=== PATIENT | male | born 1990 | race Hispanic/Latino ===

== ENCOUNTER 2021-05-01 19:02 | Emergency (ER) | payer SELFPAY ==
--- OUTSIDE RECORDS SUMMARY | 2021-05-01 19:03 | XMS REPORT | Continuity of Care Document ---
:1990 Author Organization [facility] t Address [address] [place] [address] Dr. Jones [address] [place] [id number] Care Team Providers Name Role Phone Unavailable Unavailable Unavailable Problems This patient has no known problems. Allergies, Adverse Reactions, Alerts This patient has no known allergies or adverse reactions. Medications This patient has no known medications. Procedures This patient has no known procedures. Results This patient has no known results.
--- NOTE | 2021-05-01 21:17 | RAD REPORT ---
EXAM DESCRIPTION: CT - CTHCSPWOC - 05/01/2021 9:01 pm CLINICAL HISTORY: headache and neck pain COMPARISON: No comparisons TECHNIQUE: Axial 5 mm thick images of the head were obtained. Axial 2 mm thick images of the cervic al spine were obtained with sagittal and coronal reconstruction images generated and reviewed. All CT scans are performed using dose optimization technique as appropriate and may include automated exposure control or mA/KV adjustment according to patient size. FINDINGS: No intracranial hemorrhage, mass, edema or acute intracranial finding. No suspicion for ac [place] infarction. No extra-axial fluid collections. Mastoid air cells and paranasal sinuses are clear. No globe or orbit abnormality seen. Cervical body height and alignment are normal. No disk space narrowing. No fracture or acute bony abn ormality. Central canal detail is inherently limited. No paraspinal mass or hematoma. Small sub centimeter bilateral cervical lymph nodes present. IMPRESSION: Negative CT head examination for acute or significant finding. Negative CT cervical spine examination for acute or significant finding.
[2021-05-01 21:24] LABS: Urine Blood Negative (Negative); Urine Glucose Negative (Negative); Urine Protein Negative (Negative); Urine Specific Gravity >=1.030 (1.005-1.030); Urine pH 6.5 (5.0-7.0)
[2021-05-01] MEDS ORDERED: LIDOCAINE 4% PATCH ONE (21:49)
[2021-05-01] MEDS ORDERED: CYCLOBENZAPRINE 10 MG TAB ONE (21:49)
[2021-05-01] MEDS ORDERED: KETOROLAC 30 MG/ML INJ ONE (21:49)
--- NOTE | 2021-05-01 22:09 | EDPHYS ---
Physician Documentation [facility] Name: Shawn Elizabeth Age: 30 yrs Sex: Male : 1990 Arrival Date: 05/01/2021 Time: 19:55 Bed 19 Private MD: ED Physician Kadeem Disla HPI: 05/01 20:45 This 30 yrs old Male presents to ER via Ambulatory with complaints of Neck cp Pain, >24Hrs Old - 9 DAYS. 20:45 The patient or guardian complains of pain, that is acute. The symptoms are located on cp the posterior left side of neck. Onset: The symptoms/episode began/occurred 9 day(s) ago. Associated signs and symptoms: Pertinent positives: headache, nausea, vomiting, Pertinent negatives: fever, numbness, weakness. The pain does not radiate. 20:45 Patient reports started having sudden pain to left side back of head after having cp intercourse with 9 days ago. Patient reports having sudden pain causing him to pass out briefly. Patient reports now having pain to left side back of head and posterior left side of neck. Historical: - Allergies: 20:01 No Known Allergies; da3 - PMHx: 20:01 None; da3 - Immunization history:: Client reports having NOT received the Covid vaccine. - Social history:: Smoking status: Patient reports the use of cigarette tobacco products, smokes one-half pack cigarettes per day. ROS: 20:50 Neck: Positive for pain with movement, pain at rest, of the posterior left side of cp neck, Negative for injury or acute deformity. 20:50 Eyes: Negative for injury, pain, redness, and discharge. cp 20:50 Constitutional: Negative for body aches, chills, fever, poor PO intake. 20:50 ENT: Negative for drainage from ear(s), ear pain, sore throat, difficulty swallowing, difficulty handling secretions. 20:50 Cardiovascular: Negative for chest pain. 20:50 Respiratory: Negative for cough, shortness of breath, wheezing. 20:50 Abdomen/GI: Positive for nausea and vomiting, Negative for abdominal pain, diarrhea, constipation. 20:50 Neuro: Positive for headache, Negative for altered mental status, numbness, weakness. 20:50 All other systems are negative. Exam: 20:55 Constitutional: The patient appears in no acute distress, alert, awake, cp non-diaphoretic, non-toxic, well developed, well nourished, obese. 20:55 Head/Face: Normocephalic, atraumatic. cp 20:55 Eyes: Periorbital structures: appear normal, Pupils: equal, round, and reactive to light and accomodation, Extraocular movements: intact throughout, Conjunctiva: normal, no exudate, no injection, Sclera: no appreciated abnormality, Lids and lashes: appear normal, bilaterally. 20:55 ENT: External ear(s): are unremarkable, Ear canal(s): are normal, clear, TM's: dullness, bilaterally, Nose: is normal, Mouth: Lips: moist, Oral mucosa: pink and intact, moist, Posterior pharynx: Airway: no evidence of obstruction, patent. 20:55 Neck: C-spine: vertebral tenderness, is not appreciated, crepitus, is not appreciated, ROM/movement: pain, that is mild, with rotation to the right, limited range of motion, is not appreciated, Meningeal signs: are not present, nuchal rigidity, is not appreciated, Lymph nodes: no appreciated lymphadenopathy. 20:55 Chest/axilla: Inspection: normal, Palpation: is normal, no crepitus, no tenderness. 20:55 Cardiovascular: Rate: normal, Rhythm: regular. 20:55 Respiratory: the patient does not display signs of respiratory distress, Respirations: normal, no use of accessory muscles, no retractions, labored breathing, is not present, Breath sounds: are clear throughout, no decreased breath sounds, no stridor, no wheezing. 20:55 Abdomen/GI: Inspection: obese Palpation: abdomen is soft and non-tender, in all quadrants. 20:55 Back: pain, is absent, ROM is normal. 20:55 Neuro: Orientation: to person, place \T\ time. Mentation: is normal, Cerebellar function: is grossly normal, Motor: moves all fours, strength is normal, Sensation: is normal, Gait: is steady, at a normal pace, without difficulty. Vital Signs: 19:59 BP 126 / 55; Pulse 75; Resp 18; Temp 98.7; Pulse Ox 100% on R/A; Weight 165.56 kg; da3 Height 5 ft. 11 in. (180.34 cm); 20:45 BP 128 / 79; Pulse 84; Resp 19; Pulse Ox 99% ; sm5 21:45 BP 122 / 75; Pulse 80; Resp 18; Pulse Ox 100% on R/A; sm5 22:26 BP 125 / 73; Pulse 78; Resp 18; Pulse Ox 100% ; sm5 19:59 Body Mass Index 50.91 (165.56 kg, 180.34 cm) da3 MDM: 20:22 Patient medically screened. cp 21:00 Differential diagnosis: Cervical Raiculopathy Cervical Spondylosis cervical strain, cp Spondylolisthesis Spondylosis torticollis, tension headache, migraine. 22:05 Data reviewed: vital signs, nurses notes, radiologic studies, CT scan. cp 22:05 Counseling: I had a detailed discussion with the patient and/or guardian regarding: the cp historical points, exam findings, and any diagnostic results supporting the discharge/admit diagnosis, radiology results, the need for outpatient follow up, a family practitioner, to return to the emergency department if symptoms worsen or persist or if there are any questions or concerns that arise at home. Response to treatment: the patient's symptoms have markedly improved after treatment, VSS. Headache improved. Radiology studies negative for acute findings. Will discharge to home for continued monitoring. 05/01 21:04 Order name: Glucose, Ancillary Testing; Complete Time: 21:12 EDCO 05/01 21:12 Interpretation: Reviewed. 05/01 21:23 Order name: Urine Dipstick-Ancillary; Complete Time: 21:37 EDCO 05/01 20:29 Order name: CT Head C Spine; Complete Time: 21:37 05/01 20:29 Order name: Urine Dipstick-Ancillary (obtain specimen); Complete Time: 21:22 05/01 20:43 Order name: Accucheck Blood Glucose; Complete Time: 20:53 cp Administered Medications: 21:55 Drug: Lidoderm Patch 5 % (700 mg/patch) 1 patches Route: Topical; Site: affected area; sm5 22:27 Follow up: Response: Marked relief of symptoms sm5 21:55 Drug: Flexeril (cyclobenzaprine) 10 mg Route: PO; sm5 22:27 Follow up: Response: Marked relief of symptoms sm5 21:56 Drug: Ketorolac 60 mg Route: IM; Site: right deltoid; sm5 22:28 Follow up: Response: Marked relief of symptoms sm5 Disposition Summary: 05/01/21 22:06 Discharge Ordered Location: Home cp Problem: new cp Symptoms: have improved cp Condition: Stable cp Diagnosis - Headache cp - Cervicalgia cp Followup: cp - With: Private Physician - When: 2 - 3 days - Reason: Recheck today's complaints Discharge Instructions: - Discharge Summary Sheet cp - Tension Headache, Adult cp Forms: - Medication Reconciliation Form cp - Thank You Letter cp - Antibiotic Education cp - Prescription Opioid Use cp Prescriptions: - Naprosyn 500 mg Oral Tablet - take 1 tablet by ORAL route 2 times per day take with food; 20 tablet; Refills: cp 0, Product Selection Permitted - Cyclobenzaprine 10 mg Oral Tablet - take 1 tablet by ORAL route every 8 hours As needed; 20 tablet; Refills: 0, cp Product Selection Permitted Addendum: 05/05/2021 06:58 Co-signature as Attending Physician, Kadeem Disla MD. r n Signatures: Dispatcher [employer] EDKadeem Pereyra MD MD rn Page, Corey, PA PA cp Allan, David, RN RN da3 Jennifer Lopez RN RN sm5
--- NOTE | 2021-05-01 22:09 | ER ---
Nurse's Notes [facility] Name: Shawn Elizabeth Age: 30 yrs Sex: Male : 1990 Arrival Date: 05/01/2021 Time: 19:55 Bed 19 Private MD: Diagnosis: Headache;Cervicalgia Presentation: 05/01 19:59 Chief complaint: Patient states: head pain in back of head. Coronavirus screen: Vaccine da3 status: Patient reports being unvaccinated. Ebola Screen: No symptoms or risks identified at this time. Initial Sepsis Screen: Does the patient meet any 2 criteria? No. Patient's initial sepsis screen is negative. Risk Assessment: Do you want to hurt yourself or someone else? Patient reports no desire to harm self or others. 19:59 Method Of Arrival: Ambulatory da3 19:59 Acuity: JENNIE 4 da3 20:46 Initial Sepsis Screen: Does the patient have a suspected source of infection? No. sm5 Patient's initial sepsis screen is negative. 22:27 Onset of symptoms was April 29, 2021. 5 Triage Assessment: 20:02 General: Appears in no apparent distress. comfortable, Behavior is calm, cooperative. da3 Pain: Complains of pain in scalp Pain currently is 9 out of 10 on a pain scale. Pain began suddenly, 8 days ago during sex states he passed out. Historical: - Allergies: 20:01 No Known Allergies; da3 - PMHx: 20:01 None; da3 - Immunization history:: Client reports having NOT received the Covid vaccine. - Social history:: Smoking status: Patient reports the use of cigarette tobacco products, smokes one-half pack cigarettes per day. Screenin:46 Abuse screen: Denies threats or abuse. Denies injuries from another. Nutritional sm5 screening: No deficits noted. Tuberculosis screening: No symptoms or risk factors identified. Fall Risk None identified. Assessment: 22:24 General: Appears in no apparent distress. Behavior is calm, cooperative. Pain: sm5 Complains of pain in neck. Neuro: No deficits noted. Level of Consciousness is awake, alert, Oriented to person, place, time, situation, Appropriate for age. Cardiovascular: No deficits noted. Respiratory: No deficits noted. Airway is patent Trachea midline Respiratory effort is even, unlabored. GI: No deficits noted. Vital Signs: 19:59 BP 126 / 55; Pulse 75; Resp 18; Temp 98.7; Pulse Ox 100% on R/A; Weight 165.56 kg; da3 Height 5 ft. 11 in. (180.34 cm); 20:45 BP 128 / 79; Pulse 84; Resp 19; Pulse Ox 99% ; sm5 21:45 BP 122 / 75; Pulse 80; Resp 18; Pulse Ox 100% on R/A; sm5 22:26 BP 125 / 73; Pulse 78; Resp 18; Pulse Ox 100% ; sm5 19:59 Body Mass Index 50.91 (165.56 kg, 180.34 cm) da3 ED Course: 19:55 Patient arrived in ED. 20:01 Triage completed. da3 20:14 Watson Packer PA is PHCP. cp 20:14 Kadeem Disla MD is Attending Physician. cp 20:23 Jennifer Lopez, SONG is Primary Nurse. sm5 20:46 Arm band placed on right wrist. sm5 20:46 Patient has correct armband on for positive identification. Bed in low position. Call 5 light in reach. Side rails up X 1. 21:01 CT Head C Spine In Process Unspecified. EDMS 22:26 No provider procedures requiring assistance completed. Patient did not have IV access 5 during this emergency room visit. Administered Medications: 21:55 Drug: Lidoderm Patch 5 % (700 mg/patch) 1 patches Route: Topical; Site: affected area; sm5 22:27 Follow up: Response: Marked relief of symptoms sm5 21:55 Drug: Flexeril (cyclobenzaprine) 10 mg Route: PO; sm5 22:27 Follow up: Response: Marked relief of symptoms sm5 21:56 Drug: Ketorolac 60 mg Route: IM; Site: right deltoid; sm5 22:28 Follow up: Response: Marked relief of symptoms 5 Outcome: 22:06 Discharge ordered by . cp 22:27 Discharged to home ambulatory. sm5 22:27 Condition: good 22:27 Discharge instructions given to patient, Instructed on discharge instructions, no drinking with medication, medication usage, Demonstrated understanding of instructions, follow-up care, medications, Prescriptions given X 2. 22:28 Patient left the ED. 5 Signatures: Dispatcher [employer] EDMS Page, Watson, Gaby Hernandez cp, David, RN RN da3 Jennifer Lopez, RN RN sm5
[2021-05-01 22:32] VITALS: TEMP 98.7
[2021-05-01 22:35] VITALS: BP 125/73; O2SAT 100
== END 2021-05-01 22:28 | disposition home or self-care (01) ==
LOC: ER 19:02
DX: R51.9 Headache, unspecified (principal); F17.210 Nicotine dependence, cigarettes, uncomplicated
CPT/HCPCS: 70450; 72125; 81003; 82947; 96372; 99283

== ENCOUNTER 2023-12-30 09:59 | Emergency (ER) | payer SELFPAY ==
--- OUTSIDE RECORDS SUMMARY | 2023-12-30 10:02 | XMS REPORT | Continuity of Care Document ---
Author Name Unknown Address [address] [facility] [address] [place] [address] [facility] thconnect Address [address] [facility] [address] [place] [address] Care Team Providers Care Forgesmith Name Role Phone Clarence Lombardo Attending Clinician Unavailable Geovanny Escobar Attending Clinician Unavailable KNOW, DOES_NOT Admitting Clinician Unavailable Payers Payer Name Policy Type Policy Number Effective Date Expirati on Date Source Allergies, Adverse Reactions, Alerts Allergy Name Allergy Type Status Severity Reaction(s) Onset Date Inactive Date Treating Clinician Comments Source No Known Allergie s DA Active U 07-26 00:00: 00 [facility] Encounters Start Date/Time End Date/Time Encounter Type Admission Type Attending Clinicians Care Facility Care Department Encounter ID Source 2022-07-28 04:38:00 2022-07-28 07:19:00 Emergency EM Clarence Lombardo [facility] [id number] 03 [facility] 2022-07-26 01:36:00 2022-07-26 02:01:00 Emergency EM Geovanny Escobar [facility] [id number] 87 [facility] Results Test Description Test Time Test Comments Results Resul t Comments Source - CT MAXIFAC W/CONTRAST 2022-07-28 06:56:00 [facility] ([facility])Name: RALF FRANKEL : 1990 Sex: M Name: RALF FRANKEL [facility] : 1990 Age/S: 31 / M [address] [facility] beds at the [facility] Unit #: [id number] Loc: [place] [address] Phys: Clarence Lombardo MD Acct: [id number] Dis Date: Status: REG ER PHONE #: [phone] Exam Date: 07/28/2022634 FAX #: [phone] Reason: dental abscess EXAMS: CPT CODE: [id number] CT MAXIFAC W/CONTRAST [id number] EXAM: - CT MAXIFAC W/CONTRAST LOCATION: H61 CLINICAL HISTORY/INDICATION: dental abscess COMPARISON: None TECHNIQUE: Axial CT images were obtained through the maxillofacial region after intravenous contrast administration. These were reviewed in both soft tissue and bone algorithms. Coronal and sagittal reformats were obtained from the axial data. This examination was performed according to our departmental dose optimization program, which includes automated exposure control, adjustment of the mA and/or kV according to patient size, and/or use of iterative reconstruction technique. FINDINGS: PARTIALLY IMAGED INTRACRANIAL STRUCTURES:No acute abnormality demonstrated. MASTOID AIR CELLS: Clear. ORBITS: Unremarkable. PARANASAL SINUSES: There is mild mucosal thickening in the left frontal sinus. The ethmoid sinus, maxillary sinus and dural sinuses are clear. SOFT TISSUES: There is fat stranding and mild soft tissue swelling in the right maxillary soft tissue adjacent to the alveolar ridge of the maxilla. There is no rim enhancing fluid collection. PAROTID AND SUBMANDIBULAR GLANDS: The parotid and submandibular glands are normal in appearance. ADENOPATHY: No enlarged or pathologic appearing lymph nodes are seen. BONES: Frontal bone, nasal bone, maxilla, pterygoid plates, zygoma, mandible, temporal bones and central skull base are intact. OTHER FINDINGS: Multiple dental caries involving the maxillary teeth. Mild periapical lucency involving the left maxillary central incisor is compatible with periodontal disease. No periapical abscess. PAGE 1 Signed Report (CONTINUED) Name: RALF FRANKEL [facility] : 1990 Age/S: 31 / M [address] [facility] Unit #: [id number] Loc: [place] [address] Phys: Clarence Lombardo MD Acct: [id number] Dis Date: Status: REG ER PHONE #: [phone] Exam Date: 07/28/2022 0635 FAX #: [phone] Reason: dental abscess EXAMS: CPT CODE: [id number] CT MAXIFAC W/CONTRAST [id number] (Continued) IMPRESSION: 1. Mild fat stranding and soft tissue swelling in the right maxilla adjacent to the maxillary teeth without periapical abscess. 2. Multiple dental caries and periodontal disease. at 0656 Reported and signed by: Duke Kelley M.D. CC: Clarence Lombardo MD Technologist:RADHA WILLAMS RTOmid Carty CTDI: DLP: [id number] Date/Time: 07/28/2022 (0656) [email or web address] Orig Print D/T: S: 07/28/2022 (0700) PAGE 2 Signed Report CBC W/AUTO [id number] 06:15:00* Test Item Value Reference Range Interpretation Comme nts WHITE BLOOD CELL (test code = WBC) 10.0 K/mm3 4.5-12.5 N RED BLOOD CELL (test code = RBC) 5.64 mill/mm3 4.0-5.8 N HEMOGLOBIN (test code = HGB) 16.4 gram/dL 13.0-17.5 N HEMATOCRIT (test code = HCT) 47.4 % 42.0-52.0 N MEAN CELL VOLUME (test code = MCV) 84.0 fL 80-98 N MEAN CELL HGB (test code = MCH) 29.1 picogram 27.0-33.0 N MEAN CELL HGB CONCETRATION (test code = MCHC) 34.6 gram/dL 33.0-36.0 N RED CELL DISTRIBUTION WIDTH (test code = RDW) 13.4 % 11.6-16.2 N RED CELL DISTRIBUTION WIDTH SD (test code = RDW-SD) 40.9 fL 37.0-51.0 N PLATELET COUNT (test code = PLT) 312 K/mm3 150-450 N MEAN PLATELET VOLUME (test c ode = MPV) 9.1 fL 6.7-11.0 N NEUTROPHIL % (test code = NT%) 61.9 % 39.0-69.0 N IMMATURE GRANULOCYTE % (test code = IG%) 0.3 % 0.0-5.0 N LYMPHOCYTE % (test code = LY%) 23.3 % 25.0-55.0 L MONOCYTE % (test code = MO%) 9.4 % 0.0-10.0 N EOSINOPHIL % (test code = EO%) 4.6 % 0.0-5.0 N BASOPHIL % (test code = BA%) 0.5 % 0.0-1.0 N NUCLEATED RBC % (test code = NRBC%) 0.0 % 0-0 N NEUTROPHIL # (test code = NT#) 6.15 K/mm3 1.8-7.7 N IMMATURE GRANULOCYTE # (test code = IG#) 0.03 x10 3/uL 0-0.03 N LYMPHOCYTE # (test code = LY#) 2.32 K/mm3 1.0-5.0 N MONOCYTE # (test code = MO#) 0.94 K/mm3 0-0.8 H EOSINOPHIL # (test code = EO#) 0.46 K/mm3 0.0-0.5 N BASOPHIL # (test code = BA#) 0.05 K/mm3 0.0-0.2 N NUCLEATED RBC # (test code = NRBC#) 0.00 K/mm3 0.0-0.1 N PROTHROMBIN [id number] 06:15:00* Test Item Value Reference Range Interpretation Comme nts PROTHROMBIN TIME PATIENT (test code = PTP) 10.8 seconds 9.0-14.0 N INTERNATIONAL NORMAL RATIO (test code = INR) 1.0 0.8-1.2 N The therapeutic range for oral anticoagulant therapy formost indications is an international normalized ratio (INR)of between 2.0 and 3.0. The recommended therapeutic INRrange for various clinical situations is listed below: Clinical Situation INR range Pulmonary embolism treatment (2.0-3.0)Venous thrombosis treatmentVenous thrombosis prophylaxis (high risk surgery)Prevention of systemic embolism from: Acute myocardial infarction Valvular heart disease Atrial fibrillation Mechanical prosthetic heart valves (2.5-3.5) IS PATIENT ON ANTICOAGULANTS? NTHROMBOPLASTIN TIME [id number] 06:15:00* Test Item Value Reference Range Interpretation Comme nts THROMBOPLASTIN TIME PARTIAL (test code = PTT) 36.8 seconds 23.0-37.0 N IS PATIENT ON ANTICOAGULANTS? NLACTIC [id number] 06:14:00* Test Item Value Reference Range Interpretation Comme nts LACTIC ACID (test code = LACT) 1.0 mmol/L 0.4-1.9 N Notes Date/Time Note Provider Source 2022-07-28 06:10:00 [facility] ([facility] EMERGENCY PROVIDER REPORT REPORT#:[id number] REPORT STATUS: Signed DATE:07/28/22 TIME: 609 PATIENT: RALF FRANKEL UNIT #: [id number] ROOM/BED: AGE: 31 SEX: M PCP PHYS: No Primary or Family Physician SERVICE AUTHOR: Fredi Randhawa CERTIFIED MEDICAL ASSISTANT * ALL edits or amendments must be made on the electronic/computer document * Fredi Randhawa 07/28/22 0610: HPI-Dental/Mouth Prob General Initial Greet Date/Time 07/28/22 0440 Presentation Chief Complaint Tooth pain, RIGHT SIDED FACIAL SWELLING Hx Obtained From Patient Free Text HPI Notes Free Text HPI Notes 31-year-old male presents to the ED with a complaint of a right upper gumline toothache for the past 5 days. Patient was seen here on July 26 and prescribed an oral antibiotic and given pain medicine. Patient reports since that time the condition has worsened and he began having swelling on the right side of his face this morning. Denies fever or any other symptoms. Speech clear. Patient able to control saliva. No trismus. Review of Systems ROS Statements All systems rev neg except as marked. Free Text ROS Notes Free Text ROS Notes Tooth pain/facial swelling Past Medical History - Adult Stated Complaint EXTREME FACE SWELLING Allergies Coded Allergies: No Known Allergies (07/26/22) Home Medications Active Scripts AMOXICILLIN/CLAV K (AUGMENTIN 875/125 MG) 875 MG PO BID AMOXICILLIN/CLAV K (AUGMENTIN 875/125 MG) 875 MG PO BID #20 TABS Prov: 07/26/22 CHLORHEXIDINE (PERIDEX 0.12%) 15 ML MM PC HS CHLORHEXIDINE (PERIDEX 0.12%) 15 ML MM PC HS #118 ML Prov: 07/26/22 IBUPROFEN (MOTRIN) 600 MG PO QID PRN PRN PAIN IBUPROFEN (MOTRIN) 600 MG PO QID PRN PRN PAIN #30 TABS Prov: 07/26/22 Pt reports no significant: Past medical history, Past surgical history Smoking status for patients 13 years old or older: Never Smoker Physical Exam Vital Signs Vital Signs First Documented: Result Date Time Pulse Ox 96 07/286 B/P 154/90 07/286 B/P Mean 111 07/286 O2 Delivery Room air 07/28 445 Temp 36.8 07/28 445 Pulse 96 07/28 0446 Resp 18 07/286 Last Documented: Result Date Time Pulse Ox 98 07/28 716 B/P 140/80 07/28 716 B/P Mean 100 07/28 716 Temp 36.9 07/28 716 Pulse 63 07/28 716 Resp 18 07/28 716 O2 Delivery Room air 07/28 0649 Review of Vital Signs Reviewed Focused PE General/Const General/Const Awake, Alert, Well appearing MS Head Head Normocephalic Eyes Eyes PERRL Ears/Nose/Throat Ears/Nose/Throat Atraumatic, Airway patent, Mucous membranes moist, Pharynx NL, No pooling of secretions, No trismus, No facial swelling Dental/Gums Decay extensive, Dental caries present, Dentition poor, Tooth fracture, Ginigivitis present, Gum swelling, Gum tenderness. MS Neck Neck Supple, No meningismus, Full range of motion, No adenopathy, No swelling , Non-tender, No masses Resp/Chest Respiratory/Chest Breath sounds NL, Breath sounds = bilat, No respiratory distress, No rales, No rhonchi, No wheezing, No stridor Cardiovascular Cardiovascular Heart rate NL, Regular rhythm, Heart sounds NL, No murmurs, Peripheral circulation NL Neurologic Neurologic Oriented X3, Speech NL, No motor deficits, No sensory deficits Interpretation Diagnostics Lab Results Interpretation Results Laboratory Tests 07/28/22 0530: [Embedded Image Not Available] Laboratory Tests: 07/28 07/28 0530 0530 Chemistry Sodium (136 - 145 mmol/L) 140 Potassium (3.5 - 5.1 mmol/L) 4.1 Chloride (98 - 107 mmol/L) 105.0 Carbon Dioxide (21 - 32 mmol/L) 24.0 Anion Gap (10 - 20) 15.1 BUN (7 - 18 mg/dL) 9 Creatinine (0.7 - 1.3 mg/dL) 0.70 Glomerular Filtr Rate (>=60 mL/min) > 60 BUN/Creatinine Ratio (10 - 20) 12.3 Glucose (74 - 106 mg/dL) 104 Lactic Acid (0.4 - 1.9 mmol/L) 1.0 Calcium (8.5 - 10.1 mg/dL) 8.7 Total Bilirubin (0.0 - 1.0 mg/dL) 0.50 AST (15 - 37 IUnit/L) 19 ALT (12 - 78 IUnit/L) 28 Total Alk Phosphatase (45 - 117 IUnit/L) 89 Total Protein (6.4 - 8.2 gram/dL) 7.1 Albumin (3.4 - 5.0 g/dL) 3.8 Globulin (2.7 - 4.2 gram/dL) 3.3 Albumin/Globulin Ratio (0.75 - 1.50) 1.2 Coagulation INR (0.8 - 1.2) 1.0 PTT ([place]) (23.0 - 37.0 seconds) 36.8 PT Patient/Control Mix (9.0 - 14.0 seconds) 10.8 Hematology WBC (4.5 - 12.5 K/mm3) 10.0 RBC (4.0 - 5.8 mill/mm3) 5.64 Hgb (13.0 - 17.5 gram/dL) 16.4 Hct (42.0 - 52.0 %) 47.4 MCV (80 - 98 fL) 84.0 MCH (27.0 - 33.0 picogram) 29.1 MCHC (33.0 - 36.0 gram/dL) 34.6 RDW (11.6 - 16.2 %) 13.4 RDW Std Deviation (37.0 - 51.0 fL) 40.9 Plt Count (150 - 450 K/mm3) 312 MPV (6.7 - 11.0 fL) 9.1 Neut % (Auto) (39.0 - 69.0 %) 61.9 Lymph % (Auto) (25.0 - 55.0 %) 23.3 L Hand % (Auto) (0.0 - 10.0 %) 9.4 Eos % (Auto) (0.0 - 5.0 %) 4.6 Baso % (Auto) (0.0 - 1.0 %) 0.5 Neut # (Auto) (1.8 - 7.7 K/mm3) 6.15 Lymph # (Auto) (1.0 - 5.0 K/mm3) 2.32 Hand # (Auto) (0 - 0.8 K/mm3) 0.94 H Eos # (Auto) (0.0 - 0.5 K/mm3) 0.46 Baso # (Auto) (0.0 - 0.2 K/mm3) 0.05 Nucleated RBC % (0 - 0 %) 0.0 Nucleated RBCs # (Man) (0.0 - 0.1 K/mm3) 0.00 Microbiology: Date/Time Procedure - Status Source Growth 07/28 529 Blood Culture - RECD BLOOD 07/28 516 Blood Culture - ORD BLOOD Recent Impressions: CAT SCAN - CT MAXIFAC W/CONTRAST 07/28 624 Report Impression - Status: SIGNED Entered: 07/28/2022 07 IMPRESSION: 1. Mild fat stranding and soft tissue swelling in the right maxilla adjacent to the maxillary teeth without periapical abscess. 2. Multiple dental caries and periodontal disease. Impression By: [email or web address] Kelley M.D. Lab Imaging Statement Laboratory radiographic studies reviewed and considered in the medical decision-making. Point of Care Testing Pulse Oximetry Pulse Ox % 96 On: Room air Interpretation Interpreted by me Re-Evaluation MDM Free Text MDM Notes Free Text MDM Notes After the physical exam and H P, I ordered the appropriate tests for this patient. I personally reviewed the lab tests for this patient which were all negative. The radiologist reviewed this patient's CT of his face which shows no focal abscess. I discussed these results with the patient who verbalized understanding. I will give this patient a prescription for an oral antibiotic and oral pain medication. Patient was informed to stop the penicillin VK and start the clindamycin which I prescribed. Patient verbalized understanding. The patient is discharged home with supportive care, a plan for symptom management/medication(s), and follow-up instructions that detail what to expect over the next 48 hours and what symptoms should prompt immediate return to the ED. Follow-up instructions have been explained in detail to the patient, and the instructions have been provided in written format. The patient is comfortable with the plan of care and has expressed an understanding of the discharge instructions. The patient and/or caregivers are aware that any significant change in condition or worsening of symptoms should prompt an immediate return to this or the closest emergency department or a call to 911. All ED Course Medication(s) Ordered Medication(s) Ordered: Anti-Infective Agents Sig/Enrike Start time Last Medication Dose Route Stop Time Status Admin Clindamycin Phosphate 50 ML X1ED STA 07/28 0545 DC 07/28 IV 07/28 0644 0632 Central Nervous System Agents Sig/Enrike Start time Last Medication Dose Route Stop Time Status Admin Morphine Sulfate 4 MG X1ED STA 07/28 0609 DC 07/28 IV 07/28 0610 0647 Diagnostic Agents Sig/Enrike Start time Last Medication Dose Route Stop Time Status Admin Iopamidol 0 .STK-MED ONE 07/28 0634 DC 07/28 .ROUTE 0636 Gastrointestinal Drugs Sig/Enrike Start time Last Medication Dose Route Stop Time Status Admin Ondansetron HCl 4 MG X1ED STA 07/28 0610 DC 07/28 IV 07/28 0511 0648 Differential Diagnosis Differential Diagnosis Abscess dental, Facial cellulitis, Periodontitis, Tooth fracture Findings/Social Determinants Presentation Acute Severity Evaluation Non life-threatening Diagnosis Appears Non-critical (based on LABS and Imaging) Patient Discharge Departure Vital Signs/Condition Vital Signs First Documented: Result Date Time Pulse Ox 96 07/28 445 B/P 154/90 07/28 445 B/P Mean 111 07/28 445 O2 Delivery Room air 07/28 445 Temp 36.8 07/28 445 Pulse 96 07/28 445 Resp 18 07/28 445 Last Documented: Result Date Time Pulse Ox 98 07/28 716 B/P 140/80 07/28 716 B/P Mean 100 07/28 716 Temp 36.9 07/28 716 Pulse 63 07/28 716 Resp 18 07/28 716 O2 Delivery Room air 07/28 648 All vital signs available at the time of this entry have been reviewed. Condition Stable Clinical Impression Clinical Impression Primary Impression: Infected dental caries Secondary Impressions: Facial cellulitis Disposition Decision Discharge )( Discharged to Home Yes )( Time 705 )( Date 07/28/22 Discharge/Care Plan Counseled Regarding Diagnosis, Lab results, Imaging studies, Prescriptions, Need for follow-up, When to return to ED (Auto) Prescriptions Current Visit Scripts CLINDAMYCIN HCL (CLEOCIN) 450 MG PO Q8H CLINDAMYCIN HCL (CLEOCIN) 450 MG PO Q8H #90 CAPS ACETAMINOPHEN/CODEINE (TYLENOL WITH CODEINE #3 300/30 MG) 1 TAB PO Q4H PRN PRN ACUTE PAIN ACETAMINOPHEN/CODEINE (TYLENOL WITH CODEINE #3 300/30 MG) 1 TAB PO Q4H PRN PRN ACUTE PAIN #15 TABS SUPERVISING PHYSICIAN: JOSE ESPINOSA MD (HARDY [id number]) Prescriptions Reviewed Risks, Benefits, Alternative treatment Patient Instructions ED Cellulitis, Facial, ED Dental Cavity, ED Dental Pain Additional Instructions Your lab work today is normal and your CAT scan shows that you do not have an abscess in your mouth or in your facial tissue. Please take your medications as prescribed and follow-up with the dentist on your discharge paperwork. Please pay attention to your discharge instructions on when you should return to your nearest emergency room. Thank you. Departure Forms WORK/SCHOOL EXCUSE VARIABLE Discharge Note I have spoken with the patient and/or caregivers. I have explained the patient's condition, diagnoses and treatment plan based on the information available to me at this time. I have answered the patient's and/or caregiver's questions and addressed any concerns. The patient and/or caregivers have as good an understanding of the patient's diagnosis, condition and treatment plan as can be expected at this point. The vital signs have been stable. The patient's condition is stable and appropriate for discharge from the emergency department. The patient will pursue further outpatient evaluation with the primary care physician or other designated or consulting physician as outlined in the discharge instructions. The patient and/or caregivers are agreeable to this plan of care and follow-up instructions have been explained in detail. The patient and/or caregivers have received these instructions in written format and have expressed an understanding of the discharge instructions. The patient and/or caregivers are aware that any significant change in condition or worsening of symptoms should prompt an immediate return to this or the closest emergency department or a call to 911. Quality Measures BP F/U for HTN Referred for BP f/u < 4wk, F/u with PCP/other doc Smoking Cessation Screened, non user Clarence Lombardo 07/28/22 0732: Physical Exam Focused PE General/Const General/Const Awake, Alert MS Head Text/Dict Notes Right-sided facial swelling along the right upper jaw Patient Discharge Departure Discharge/Care Plan Referrals Resource Referral: [facility] Follow-Up: Call for appointment Notes: DENTAL FOLLOW UP Address: [address] [place] [address] Supervising Physician Note MidLv/Doc Saw Pt 1 I have personally seen the patient and I evaluated the patient along with involvement of the PA/CERTIFIED MEDICAL ASSISTANT. I agree with the PA/freelance digital project manager findings and plan. I have performed all aspects of MDM as documented including: evaluation of the patient/ patient's condition(s), review and analysis of available data, and determination of risk of patient management decisions. at 0724 at 0734 RPT #:[id number] END OF REPORT [facility] 2022-07-26 01:49:00 [facility] ([facility]) EMERGENCY PROVIDER REPORT REPORT#:[id number] REPORT STATUS: Signed DATE:07/26/22 TIME: 014 PATIENT: RALF FRANKEL UNIT #: [id number] ROOM/BED: AGE: 31 SEX: M PCP PHYS: DOES_NOT KNOW SERVICE AUTHOR: AshokDavid kahn APRNNP * ALL edits or amendments must be made on the electronic/computer document * Drew07/26/22 0149: HPI-Dental/Mouth Prob Free Text HPI Notes Free Text HPI Notes 31-year-old male with no significant medical history presents to ED with toothache x2 to 3 days. Patient took Tylenol 1000 mg at 2215 for pain. Patient denies fever, chills, sore throat, trismus, drooling, neck pain, facial pain or edema, erythema, ear drainage, cough, chest pain, sob, wheezing, abdominal pain, nausea, or vomiting. General Confirmed Patient Yes Initial Greet Date/Time 07/26/22 013 PCP NONE Presentation Chief Complaint Tooth pain Hx Obtained From Patient Onset Occurred Days ago Symptom Duration Since onset Progression since Onset Waxes and wanes Caused by No trauma by history Location Tooth upper Quality Painful Radiation Face. Severity: Onset Moderate Severity: Current Moderate Associated with Denies: Bleeding, Can't fully open mouth, Chills, Drooling, Earache, Fever, Hoarse voice, Nausea, Shortness of breath, Sore throat, Unable to tolerate P.O., Vomiting, bloody, Vomiting, non bloody. Exacerbated by Chewing Relieved by OTC medications Review of Systems ROS Statements All systems rev neg except as marked. Focused Review of Systems Constitutional Denies: Chills, Fever, Lethargy. Ears/Nose/Throat Reports: Toothache. Respiratory Denies: Cough, non-productive, Cough, productive, Shortness of breath. GI Denies: Abdominal pain, Diarrhea, Nausea, Vomiting. Past Medical History - Adult Stated Complaint PAIN FROM UPPER GUMS THATRADIATES TO RIGHT CHEEK Allergies Coded Allergies: No Known Allergies (07/26/22) Review of Nursing Notes Triage notes reviewed Pt reports no significant: Past medical history, Past surgical history, Social history Physical Exam Vital Signs Vital Signs First Documented: Result Date Time Pulse Ox 97 07/27 135 B/P 126/88 07/27 135 B/P Mean 100 07/27 135 O2 Delivery Room air 07/27 135 Temp 36.9 07/27 135 Pulse 85 07/27 135 Resp 18 07/27 135 Last Documented: Result Date Time Pulse Ox 97 07/27 135 B/P 126/88 07/27 135 B/P Mean 100 07/27 135 O2 Delivery Room air 07/27 135 Temp 36.9 07/27 135 Pulse 85 07/27 135 Resp 18 07/27 135 Review of Vital Signs Reviewed Focused PE General/Const General/Const Awake, Alert, Well appearing MS Head Head Normocephalic Eyes Eyes PERRL Ears/Nose/Throat Ears/Nose/Throat Atraumatic, Airway patent, Mucous membranes moist, Pharynx NL, No pooling of secretions, No trismus, No facial swelling Dental/Gums Dentition poor, Ginigivitis present. MS Neck Neck Supple, No meningismus, Full range of motion, No adenopathy, No swelling , Non-tender, No masses Resp/Chest Respiratory/Chest Breath sounds NL, Breath sounds = bilat, No respiratory distress, No rales, No rhonchi, No wheezing, No stridor Cardiovascular Cardiovascular Heart rate NL, Regular rhythm, Heart sounds NL, No murmurs, Peripheral circulation NL Neurologic Neurologic Oriented X3, Speech NL, No motor deficits, No sensory deficits Interpretation Diagnostics Point of Care Testing Pulse Oximetry Pulse Ox % 97 On: Room air Interpretation Interpreted by me, Pulse oximetry normal Re-Evaluation MDM Free Text MDM Notes Free Text MDM Notes Rationale for ED treatment: Dental pain History obtained from: Patient Procedures: None Discussion: Treatment plan, f/u outpatient w/ ED return precautions Rx Drug Regimen: New Rx given Safety Concerns: None Consultation: None Differential Diagnosis: See below Presentation: acute. Severity evaluation: non-life threatening. Diagnosis appears: Stable for discharge Relevant comorbidities: None Social Concerns: None The patient is discharged home with supportive care, a plan for symptom management/medication(s), and follow-up instructions that detail what to expect over the next 48 hours and what symptoms should prompt immediate return to the ED. Follow-up instructions have been explained in detail to the patient, and the instructions have been provided in written format. The patient is comfortable with the plan of care and has expressed an understanding of the discharge instructions. The patient and/or caregivers are aware that any significant change in condition or worsening of symptoms should prompt an immediate return to this or the closest emergency department or a call to 911. ED Course Medication(s) Ordered Medication(s) Ordered: Central Nervous System Agents Sig/Enrike Start time Last Medication Dose Route Stop Time Status Admin Hydrocodone Bitart/ 1 TAB X1ED STA 07/26 015 DC Acetaminophen PO 07/26 152 Differential Diagnosis Differential Diagnosis Abscess dental, Acute nec ulcer gingivit, Alveolar fracture, Alveolar osteitis, Aphthous ulcer, Facial cellulitis, Frenulum laceration, Hand, foot, mouth disease, Herpetic eruption, Herpetic stomatitis, Laceration hard palate, Laceration soft palate, Lichen planus, Lip laceration, Oral lesion, Periapical abscess, Periodontal abscess, Periodontitis, Post- extraction bleeding, Pulpitis, Stomatitis, Thrush, TMJ syndrome R, TMJ syndrome L, Tongue geographic, Tongue contusion, Tongue laceration, Tooth avulsion, Tooth eruption, Tooth fracture, Tooth subluxation, Trigeminal neuralgia, Uvulitis Patient Discharge Departure Vital Signs/Condition Vital Signs First Documented: Result Date Time Pulse Ox 97 07/26 0136 B/P 126/88 / 0136 B/P Mean 100 / 0136 O2 Delivery Room air 07/26 0136 Temp 36.9 07/26 0136 Pulse 85 / 0136 Resp 18 07/26 0136 Last Documented: Result Date Time Pulse Ox 97 / 0136 B/P 126/88 07/26 0136 B/P Mean 100 / 0136 O2 Delivery Room air 07/26 0136 Temp 36.9 / 0136 Pulse 85 / 0136 Resp 18 07/26 0136 All vital signs available at the time of this entry have been reviewed. Condition Stable Clinical Impression Clinical Impression Primary Impression: Dental abscess Disposition Decision Discharge )( Discharged to Home Yes )( Time 0149 )( Date 07/26/22 Discharge/Care Plan Counseled Regarding Diagnosis, Prescriptions, Need for follow-up, When to return to ED (Auto) Prescriptions Current Visit Scripts AMOXICILLIN/CLAV K (AUGMENTIN 875/125 MG) 875 MG PO BID AMOXICILLIN/CLAV K (AUGMENTIN 875/125 MG) 875 MG PO BID #20 TABS TAKE TILL COMPLETE CHLORHEXIDINE (PERIDEX 0.12%) 15 ML MM PC HS CHLORHEXIDINE (PERIDEX 0.12%) 15 ML MM PC HS #118 ML SWISH AND SPIT AFTER MEALS BEFORE BEDTIME UNTIL RESOLVED, NOTHING TO EAT OR DRINK FOR 30-60 MIN AFTER MED IBUPROFEN (MOTRIN) 600 MG PO QID PRN PRN PAIN IBUPROFEN (MOTRIN) 600 MG PO QID PRN PRN PAIN #30 TABS Prescriptions Reviewed Risks, Benefits, Alternative treatment Patient Instructions ED Dental Abscess Additional Instructions For pain control, you can put a glob of Orajel on your tooth and cover with brace wax. The Orajel will numb the area this wax will push the pain medicine further into the painful tooth and prevent it from being washed off with your saliva and eating/drinking. Follow-up with dental, with for fever increasing pain or swelling, worsening condition or any concerns. Discharge Note I have spoken with the patient and/or caregivers. I have explained the patient's condition, diagnoses and treatment plan based on the information available to me at this time. I have answered the patient's and/or caregiver's questions and addressed any concerns. The patient and/or caregivers have as good an understanding of the patient's diagnosis, condition and treatment plan as can be expected at this point. The vital signs have been stable. The patient's condition is stable and appropriate for discharge from the emergency department. The patient will pursue further outpatient evaluation with the primary care physician or other designated or consulting physician as outlined in the discharge instructions. The patient and/or caregivers are agreeable to this plan of care and follow-up instructions have been explained in detail. The patient and/or caregivers have received these instructions in written format and have expressed an understanding of the discharge instructions. The patient and/or caregivers are aware that any significant change in condition or worsening of symptoms should prompt an immediate return to this or the closest emergency department or a call to 911. Quality Measures BP F/U for HTN BP in normal range Smoking Cessation Screened, non user Geovanny Escobar 07/28/22 2147: Past Medical History - Adult Home Medications Active Scripts CLINDAMYCIN HCL (CLEOCIN) 450 MG PO Q8H CLINDAMYCIN HCL (CLEOCIN) 450 MG PO Q8H #90 CAPS Prov: 07/28/22 ACETAMINOPHEN/CODEINE (TYLENOL WITH CODEINE #3 300/30 MG) 1 TAB PO Q4H PRN PRN ACUTE PAIN ACETAMINOPHEN/CODEINE (TYLENOL WITH CODEINE #3 300/30 MG) 1 TAB PO Q4H PRN PRN ACUTE PAIN #15 TABS Prov: 07/28/22 Patient Discharge Departure Discharge/Care Plan Referrals Resource Referral: [facility] Address: [address] [place] [address] Resource Referral: [facility] Address: [address] [place] [address] Resource Referral: [facility] Address: [address] [place] [address] Resource Referral: [facility] Address: [address] [place] [address] Resource Referral: [facility] y[facility] Address: [address] [place] [address] Resource Referral: [facility] Address: [address] [place] [address] Supervising Physician Note MidLv Saw Pt Alone I have reviewed the PA/CERTIFIED MEDICAL ASSISTANT's note and plan of care. I was available for consultation as needed at all times during the patient's visit in the emergency department. I agree with the clinical impression, plan and disposition. at 0203 at 2148 RPT #:[id number] END OF REPORT [facility]
--- NOTE | 2023-12-30 11:22 | ER ---
Nurse's Notes [facility] Name: Shawn Elizabeth Age: 33 yrs Sex: Male : 1990 Arrival Date: 12/30/2023 Time: 09:59 Bed 11 Private MD: Diagnosis: SARS-associated coronavirus as the cause of diseases classified elsewhere;Cellulitis of abdominal wall Presentation: 12/29 10:18 Chief complaint: Patient states: he tested positive on a work COVID test Wednesday12/26/23 ap3 and needs a work note in order to return to work. patient states his symptoms have improved, with the exception of continued congestion and cough. patient complains of multiple "boils" on his abdomen and back that are also causing him discomfort. Coronavirus screen: Client presents with at least one sign or symptom that may indicate coronavirus-19. Ebola Screen: No symptoms or risks identified at this time. Initial Sepsis Screen: Does the patient meet any 2 criteria? No. Patient's initial sepsis screen is negative. Does the patient have a suspected source of infection? No. Patient's initial sepsis screen is negative. Risk Assessment: Do you want to hurt yourself or someone else? Patient reports no desire to harm self or others. Onset of symptoms was December 26, 2023. 10:18 Method Of Arrival: Ambulatory ap3 10:18 Acuity: JENNIE 4 ap3 Triage Assessment: 10:21 General: Appears in no apparent distress. Behavior is calm, cooperative, appropriate ap3 for age. Pain: Complains of pain in back and abdomen. Neuro: Level of Consciousness is awake, alert, obeys commands, Oriented to person, place, time, situation, Appropriate for age. Cardiovascular: Patient's skin is warm and dry. Respiratory: Airway is patent Respiratory effort is even, unlabored, Respiratory pattern is regular, symmetrical. Derm: Wound noted back and abdomen. Historical: - Allergies: 10:20 No Known Allergies; ap3 - Home Meds: 10:20 None [Active]; ap3 - PMHx: 10:20 None; ap3 - Immunization history:: Client reports receiving the 2nd dose of the Covid vaccine. - Infectious Disease History:: unknown. - Social history:: Smoking status: Patient reports the use of cigarette tobacco products, smokes one pack cigarettes per day. - Family history:: not pertinent. - Hospitalizations: : No recent hospitalization is reported. Screenin:22 [facility] ED Fall Risk Assessment (Adult) History of falling in the last 3 months, ap3 including since admission No falls in past 3 months (0 pts) Confusion or Disorientation No (0 pts) Intoxicated or Sedated No (0 pts) Impaired Gait No (0 pts) Mobility Assist Device Used No (0 pt) Altered Elimination No (0 pt) Score/Fall Risk Level 0 - 2 = Low Risk Oriented to surroundings, Maintained a safe environment, Educated pt \\T\\ family on fall prevention, incl call for assistance when getting out of bed, Assessed \\T\\ reinforced patient's understanding of fall precautions, Provided non-skid footwear, Used ambulatory aids as needed (educated on \\T\\ assisted with), Used gait belt as appropriate. Abuse screen: Denies threats or abuse. Nutritional screening: No deficits noted. Tuberculosis screening: No symptoms or risk factors identified. Vital Signs: 10:18 BP 139 / 76; Pulse 84; Resp 17; Temp 97.8; Pulse Ox 100% on R/A; Weight 172.37 kg; ap3 Height 5 ft. 11 in. ; Pain 6/10; 11:39 BP 130 / 80; Pulse 72; Resp 17; Pulse Ox 99% on R/A; ap3 10:18 Body Mass Index 53.00 (172.37 kg, 180.34 cm) ap3 10:18 Pain Scale: Adult ap3 ED Course: 10:02 Patient arrived in ED. mg5 10:10 Kadeem Disla MD is Attending Physician. rn 10:18 Karla Peralta RN is Primary Nurse. ap3 10:20 Triage completed. ap3 10:22 Arm band placed on right wrist. ap3 10:22 Patient has correct armband on for positive identification. Bed in low position. Call ap3 light in reach. Provided Education on: use of call light. Pulse ox on. NIBP on. 11:40 No provider procedures requiring assistance completed. Patient did not have IV access ap3 during this emergency room visit. Administered Medications: No medications were administered Medication: 10:22 VIS not applicable for this client. ap3 Outcome: 11:21 Discharge ordered by . rn 11:40 Discharged to home ambulatory, ap3 11:40 Condition: good 11:40 Discharge instructions given to patient, Instructed on discharge instructions, follow up and referral plans. Demonstrated understanding of instructions, follow-up care, 11:40 Patient left the ED. ap3 Signatures: Kadeem Disla MD MD rn Karla Peralta RN RN ap3 Devora Mcgowan mg5
--- NOTE | 2023-12-30 11:22 | EDPHYS ---
Physician Documentation [facility] Name: Shawn Elizabeth Age: 33 yrs Sex: Male : 1990 Arrival Date: 12/30/2023 Time: 09:59 Bed 11 Private MD: ED Physician Kadeem Disla HPI: 12/29 10:36 This 33 yrs old Male presents to ER via Ambulatory with complaints of Covid. rn 10:36 the patient presents with a swollen area of the back and abdomen. Onset: The rn symptoms/episode began/occurred 4 day(s) ago. Associated signs and symptoms: The patient has no apparent associated signs or symptoms. Severity of symptoms: At their worst the symptoms were mild, in the emergency department the symptoms are unchanged. The patient has experienced similar episodes in the past. Patient reports here for 2 reasons. Needs medical clearance to return to work because has COVID for the last week. No chills. Overall feels better. Still has slight cough. Denies any fever. Also here because has noticed areas of redness and tenderness to the abdomen and flank skin, has had multiple cellulitis and abscesses in the past. 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 Historical: - Allergies: 10:20 No Known Allergies; ap3 - Home Meds: 10:20 None [Active]; ap3 - PMHx: 10:20 None; ap3 - Immunization history:: Client reports receiving the 2nd dose of the Covid vaccine. - Infectious Disease History:: unknown. - Social history:: Smoking status: Patient reports the use of cigarette tobacco products, smokes one pack cigarettes per day. - Family history:: not pertinent. - Hospitalizations: : No recent hospitalization is reported. ROS: 10:36 Constitutional: Negative for fever, chills, and weight loss, Cardiovascular: Negative rn for chest pain, palpitations, and edema, Respiratory: Positive for cough, negative for shortness of breath Abdomen/GI: Negative for abdominal pain, nausea, vomiting, diarrhea, and constipation, Back: Negative for injury and pain, MS/Extremity: Negative for injury and deformity, Skin: Positive for areas of swelling and induration Neuro: Negative for headache, weakness, numbness, tingling, and seizure, Exam: 10:36 Constitutional: This is a well developed, well nourished patient who is awake, alert, rn and in no acute distress. Cardiovascular: Regular rate and rhythm. No pulse deficits. Respiratory: No increased work of breathing, no retractions or nasal flaring. Skin: Warm, dry, multiple areas of induration and erythema to left abdominal wall, left flank, left and right lower back. No evidence of fluctuance. Largest one on the abdominal wall already open and draining clear yellow fluid. Vital Signs: 10:18 BP 139 / 76; Pulse 84; Resp 17; Temp 97.8; Pulse Ox 100% on R/A; Weight 172.37 kg; ap3 Height 5 ft. 11 in. ; Pain 6/10; 11:39 BP 130 / 80; Pulse 72; Resp 17; Pulse Ox 99% on R/A; ap3 10:18 Body Mass Index 53.00 (172.37 kg, 180.34 cm) ap3 10:18 Pain Scale: Adult ap3 MDM: 10:10 Patient medically screened. rn 10:36 Differential diagnosis: abscess, cellulitis, COVID. Data reviewed: vital signs, nurses rn notes, and as a result, I will discharge patient. Counseling: I had a detailed discussion with the patient and/or guardian regarding the historical points, exam findings, and any diagnostic results supporting the discharge/admit diagnosis, the need for outpatient follow up, to return to the emergency department if symptoms worsen or persist or if there are any questions or concerns that arise at home. Special discussion: I discussed with the patient/guardian in detail that at this point there is no indication for admission to the hospital. It is understood, however, that if the symptoms persist or worsen the patient needs to return immediately for re-evaluation. Administered Medications: No medications were administered Disposition Summary: 12/30/23 11:21 Discharge Ordered Notes: Location: Home rn Problem: new rn Symptoms: have improved rn Condition: Stable rn Diagnosis - SARS-associated coronavirus as the cause of diseases classified elsewhere rn - Cellulitis of abdominal wall rn Followup: rn - With: Private Physician - When: As needed - Reason: Recheck today's complaints, Re-evaluation by your physician Discharge Instructions: - Discharge Summary Sheet rn - Cellulitis, Adult rn - COVID-19 rn - Viral Illness, Adult rn Forms: - Medication Reconciliation Form 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
[2023-12-30 11:53] VITALS: TEMP 97.8
[2023-12-30 11:54] VITALS: BP 130/80; O2SAT 99
== END 2023-12-30 11:40 | disposition home or self-care (01) ==
LOC: ER 09:59
DX: U07.1 COVID-19 (principal); L03.311 Cellulitis of abdominal wall
CPT/HCPCS: 99283